=== PATIENT | male | born 1985 | race Caucasian/White ===

== ENCOUNTER 2016-07-26 09:03 | Emergency (ER) | payer BC ==
[~2016-07-26] VITALS: Ht 177.8 cm; Wt 73.9 kg
--- NOTE | 2016-07-26 09:05 | NUR ---
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 RESP EVEN AND UNLABORED WITH NAD NOTED. SKIN IS WARM AND DRY. DR BRADY AT BS FOR EVAL.
[2016-07-26] MEDS ORDERED: IV NS 0.9% 1,000 ML ONE (09:30)
[2016-07-26] MEDS ORDERED: IV NS 0.9% 1,000 ML BAG IV ONE (09:30)
[2016-07-26] MEDS ORDERED: IV SET PRIMARY 1 EA INFUS.SET MC ONE (09:30)
[2016-07-26 09:32] LABS: BASOPHILS # (AUTO) 0.1 /CMM (0.0-0.2); BASOPHILS % (AUTO) 0.7 % (0.0-2.0); EOSINOPHILS # (AUTO) 0.4 /CMM (0.0-0.7); EOSINOPHILS % (AUTO) 4.5 % (0.0-6.0); HEMATOCRIT 41 % (39-51); HEMOGLOBIN 13.8 g/dL (13.5-17.5); LYMPHOCYTES # (AUTO) 1.9 /CMM (0.8-4.8); MEAN CORPUSCULAR HEMOGLOBIN 29 PG (26.0-33.0); MEAN CORPUSCULAR HGB CONC 33 g/dl (31.0-36.0); MEAN CORPUSCULAR VOLUME 87 fL (80-96); MONOCYTES # (AUTO) 1.4 /CMM (0.1-1.30); MONOCYTES % (AUTO) 16.7 % (2.0-12.0); NEUTROPHILS # (AUTO) 4.8 /CMM (1.8-8.9); NEUTROPHILS % (AUTO) 56.1 % (43.0-81.0); PLATELET COUNT (AUTO) 259 /CMM (150-450); RDW COEFFICIENT OF VARIATION 12.5 (11.5-15.0); RED BLOOD CELL COUNT(AUTO) 4.79 MIL/uL (4.5-6.0); WHITE BLOOD COUNT (AUTO) 8.6 K/uL (4.3-11.0)
--- NOTE | 2016-07-26 09:37 | NUR ---
PATIENT TRANSPORTED TO CT SCAN VIA WHEELCHAIR. PATIENT APPEARS STABLE AT THIS TIME.
[2016-07-26 09:39] LABS: CALCIUM, SERUM 9.1 mg/dL (8.5-10.1); POTASSIUM 4.5 mmol/L (3.5-5.1)
--- NOTE | 2016-07-26 09:46 | NUR ---
PATIENT CAME BACK FROM CT VIA WHEELCHAIR.
[2016-07-26 09:47] LABS: PROTHROMBIN TIME 10.7 SECS (9.5-12.7)
--- NOTE | 2016-07-26 10:57 | NUR ---
IV removed. Catheter intact and site benign. Pressure and 4x4 applied to site. No bleeding noted.Patient discharged to home in stable condition. Written and verbal after care instructions given. Patient verbalizes understanding of instruction.
[2016-07-26 10:58] VITALS: BP 113/72
[2016-07-26 11:19] LABS: BAND % (MANUAL) 1 % (0.0-5.0); EOSINOPHILS % (MANUAL) 6 % (0-4); LYMPHOCYTES % (MANUAL) 15 % (16-48); MONOCYTES % (MANUAL) 13 % (0-11.0); NEUTROPHILS % (MANUAL) 65 (42-76); PLATELET ESTIMATE ADEQUATE
== END 2016-07-26 10:58 | disposition home or self-care (01) ==
LOC: EDBD 09:04 → ER 09:04
DX: R55 Syncope and collapse (principal); R04.0 Epistaxis
CPT/HCPCS: 36415; 70450; 71010; 80048; 85025; 85730; 93005; 96360; 99285; A4606; J7030; Z7610